=== PATIENT | female | born 1990 | race Caucasian/White ===

== ENCOUNTER 2017-03-15 15:21 | Emergency (ER) | payer MEDICAID, OTHER ==
[2017-03-15] MEDS: METHYLPREDNISOLONE 125 MG INJ IV (18:58)
[2017-03-15] MEDS: KETOROLAC 30 MG INJ IV (18:58)
[2017-03-15] MEDS: SOD CHLORIDE 0.9% 1,000 ML IV (18:58)
[2017-03-15] MEDS: PENICILLIN G BENZ 1.2 MIL UNIT SYG IM (19:16)
== END 2017-03-15 19:47 | disposition home or self-care (01) ==
LOC: FTE 15:21
DX: J02.9 Acute pharyngitis, unspecified (principal)
CPT/HCPCS: 96372; 96374; 96375; 99284-25; J0561

== ENCOUNTER 2017-09-17 13:41 | Emergency (ER) | payer SELFPAY, OTHER, MEDICAID ==
[2017-09-17] MEDS: DEXAMETHASONE 10 MG/ML 1 ML INJ IV (14:17)
[2017-09-17] MEDS: AMPICILLIN/SULB 3 GM/NS (PMX) 100 ML IVPB (14:17)
[2017-09-17] MEDS: SOD CHLORIDE 0.9% 500 ML IV (14:17)
[2017-09-17 14:33] LABS: ADD MAN DIFF? NO
[2017-09-17 14:34] LABS: BASOPHILS % 0.3 % (0.0-2.0); EOSINOPHILS # 0.1 10^3/ul (0.0-0.5); EOSINOPHILS % 1.1 % (0.0-7.0); HEMATOCRIT 42.9 % (37.0-47.0); HEMOGLOBIN 14.1 g/dl (12.0-16.0); LYMPHOCYTES # 2.5 10^3/ul (0.8-2.9); LYMPHOCYTES % 25.2 % (15.0-51.0); MEAN CORPUSCULAR HEMOGLOBIN 29.5 pg (29.0-33.0); MEAN CORPUSCULAR HGB CONC 32.9 g/dl (32.0-37.0); MEAN CORPUSCULAR VOLUME 89.7 fl (82.0-101.0); MEAN PLATELET VOLUME 11.6 fl (7.4-10.4); MONOCYTE # 0.9 10^3/ul (0.3-0.9); MONOCYTES % 8.7 % (0.0-11.0); NEUTROPHIL # 6.3 10^3/ul (1.6-7.5); NEUTROPHILS % 64.5 % (39.0-77.0); PLATELET COUNT 292 10^3/UL (140-415); RED BLOOD COUNT 4.78 10^6/ul (4.20-5.40); RED CELL DISTRIBUTION WIDTH 13.1 % (11.5-14.5)
[2017-09-17 14:34] LABS: WHITE BLOOD COUNT 9.8 10^3/ul (4.8-10.8)
[2017-09-17] MEDS: KETOROLAC 30 MG INJ IV (14:35)
[2017-09-17 14:52] LABS: MONOTEST Negative (NEG)
[2017-09-17 14:57] LABS: ANION GAP 16 (8-16); BLOOD UREA NITROGEN 10 mg/dl (7-20); CALCIUM 9.3 mg/dl (8.4-10.2); CARBON DIOXIDE 25 mmol/L (21-31); CHLORIDE 106 mmol/L (97-110); CREATININE 0.53 mg/dl (0.44-1.00); GLUCOSE 83 mg/dl (70-220); POTASSIUM 3.9 mmol/L (3.5-5.1); SODIUM 143 mmol/L (135-144)
[2017-09-17] MEDS: SOD CHLORIDE 0.9% 100 ML (15:22)
[2017-09-17] MEDS: IOHEXOL 300MG/ML 150 ML BTL (15:22)
== END 2017-09-17 18:59 | disposition home or self-care (01) ==
LOC: E/R 13:41
DX: J02.9 Acute pharyngitis, unspecified (principal); J39.2 Other diseases of pharynx
CPT/HCPCS: 70491; 80048; 84703; 85025; 86308; 87070; 96374; 96375; 99291-25

== ENCOUNTER 2018-01-24 10:53 | Emergency (ER) | payer SELFPAY ==
[2018-01-24] MEDS ORDERED: BUDESONIDE (NEB) 0.5MG/2ML AMP HHN (11:30)
[2018-01-24 11:47] LABS: URINE PH (Dip) POC 6.5 (5.0-8.5)
[2018-01-24 11:47] LABS: URINE BLOOD (Dip) POC Trace-intact (NEGATIVE); URINE GLUCOSE (Dip) POC Negative (NEGATIVE); URINE KETONES (Dip) POC Negative (NEGATIVE); URINE LEUKOCYTE EST (Dip) POC Negative (NEGATIVE); URINE NITRITE (Dip) POC Negative (NEGATIVE); URINE TOTAL PROTEIN POC Negative (NEGATIVE)
[2018-01-24] MEDS: BUDESONIDE (NEB) 0.25 MG/2 ML AMP INH (11:49)
[2018-01-24] MEDS: DEXAMETHASONE 10 MG/ML 1 ML INJ IV (12:08)
[2018-01-24] MEDS: KETOROLAC 15 MG INJ IV (12:08)
[2018-01-24 12:28] LABS: ADD MAN DIFF? NO
[2018-01-24] MEDS: SOD CHLORIDE 0.9% 1,000 ML IV (12:29)
[2018-01-24 12:30] LABS: WHITE BLOOD COUNT 9.9 10^3/ul (4.8-10.8)
[2018-01-24 12:30] LABS: BASOPHILS % 0.4 % (0.0-2.0); EOSINOPHILS # 0.2 10^3/ul (0.0-0.5); HEMATOCRIT 47.1 % (37.0-47.0); HEMOGLOBIN 15.1 g/dl (12.0-16.0); LYMPHOCYTES # 1.3 10^3/ul (0.8-2.9); LYMPHOCYTES % 13.4 % (15.0-51.0); MEAN CORPUSCULAR HEMOGLOBIN 28.8 pg (29.0-33.0); MEAN CORPUSCULAR HGB CONC 32.1 g/dl (32.0-37.0); MEAN CORPUSCULAR VOLUME 89.7 fl (82.0-101.0); MEAN PLATELET VOLUME 11.7 fl (7.4-10.4); MONOCYTE # 1.1 10^3/ul (0.3-0.9); MONOCYTES % 11.4 % (0.0-11.0); NEUTROPHIL # 7.2 10^3/ul (1.6-7.5); NEUTROPHILS % 72.6 % (39.0-77.0); PLATELET COUNT 286 10^3/UL (140-415); RED BLOOD COUNT 5.25 10^6/ul (4.20-5.40); RED CELL DISTRIBUTION WIDTH 13.5 % (11.5-14.5)
[2018-01-24] MEDS: CEFTRIAXONE 2 GM/50 ML (PMX) 50 ML IVPB (12:30)
[2018-01-24 12:56] LABS: ANION GAP 11 (5-13); BLOOD UREA NITROGEN 15 mg/dl (7-20); CALCIUM 9.9 mg/dl (8.4-10.2); CARBON DIOXIDE 25 mmol/L (21-31); CHLORIDE 107 mmol/L (97-110); CREATININE 0.62 mg/dl (0.44-1.00); Estimated GFR > 60 mL/min (>60); GLUCOSE 65 mg/dl (70-220); POTASSIUM 3.8 mmol/L (3.5-5.1); SODIUM 143 mmol/L (135-144)
== END 2018-01-24 13:41 | disposition home or self-care (01) ==
LOC: FTE 10:53
DX: J03.90 Acute tonsillitis, unspecified (principal); Z87.891 Personal history of nicotine dependence
CPT/HCPCS: 36415; 70360; 80048; 81003; 81025; 85025; 94664; 96374; 96375; 99284-25

== ENCOUNTER 2018-03-23 14:47 | Emergency (ER) | payer SELFPAY ==
[2018-03-23] MEDS: DEXAMETHASONE 10 MG/ML 1 ML INJ IM (15:21)
[2018-03-23] MEDS: PENICILLIN G BENZ 1.2 MIL UNIT SYG IM (15:21)
== END 2018-03-23 18:17 | disposition home or self-care (01) ==
LOC: FTE 14:47
DX: J39.2 Other diseases of pharynx (principal); F17.210 Nicotine dependence, cigarettes, uncomplicated
CPT/HCPCS: 96372; 99284-25

== ENCOUNTER 2018-06-01 15:38 | Emergency (ER) | payer SELFPAY ==
[2018-06-01 18:12] LABS: URINE BLOOD (Dip) POC Negative (NEGATIVE); URINE GLUCOSE (Dip) POC Negative (NEGATIVE); URINE KETONES (Dip) POC Negative (NEGATIVE); URINE LEUKOCYTE EST (Dip) POC Negative (NEGATIVE); URINE NITRITE (Dip) POC Negative (NEGATIVE); URINE TOTAL PROTEIN POC Negative (NEGATIVE)
[2018-06-01] MEDS: DEXAMETHASONE 10 MG/ML 1 ML INJ IM (19:05)
[2018-06-01] MEDS: CEFTRIAXONE 1 GM INJ IM (19:05)
[2018-06-01] MEDS: KETOROLAC 30 MG INJ IM (19:06)
== END 2018-06-01 19:18 | disposition home or self-care (01) ==
LOC: FTE 15:38 → E/R 19:18
DX: J03.90 Acute tonsillitis, unspecified (principal)
CPT/HCPCS: 81003; 96372; 99284-25

== ENCOUNTER 2018-06-26 22:31 | Emergency (ER) | payer SELFPAY, OTHER ==
[2018-06-27] MEDS: RACEPINEPHRINE 2.25%(NEB) 0.5 ML AMP HHN (02:23)
[2018-06-27] MEDS: DEXAMETHASONE 10 MG/ML 1 ML INJ IV (02:34)
[2018-06-27 02:36] LABS: ADD MAN DIFF? NO
[2018-06-27 02:38] LABS: WHITE BLOOD COUNT 12.8 10^3/ul (4.8-10.8)
[2018-06-27 02:38] LABS: BASOPHIL # 0.1 10^3/ul (0.0-0.1); BASOPHILS % 0.5 % (0.0-2.0); EOSINOPHILS # 0.3 10^3/ul (0.0-0.5); HEMATOCRIT 43.4 % (37.0-47.0); LYMPHOCYTES # 4.5 10^3/ul (0.8-2.9); LYMPHOCYTES % 35.4 % (15.0-51.0); MEAN CORPUSCULAR HGB CONC 32.3 g/dl (32.0-37.0); MEAN CORPUSCULAR VOLUME 89.9 fl (82.0-101.0); MEAN PLATELET VOLUME 11.1 fl (7.4-10.4); MONOCYTE # 1.1 10^3/ul (0.3-0.9); MONOCYTES % 8.9 % (0.0-11.0); NEUTROPHIL # 6.7 10^3/ul (1.6-7.5); NEUTROPHILS % 52.8 % (39.0-77.0); PLATELET COUNT 310 10^3/UL (140-415); RED BLOOD COUNT 4.83 10^6/ul (4.20-5.40); RED CELL DISTRIBUTION WIDTH 13.3 % (11.5-14.5)
[2018-06-27] MEDS: KETOROLAC 30 MG INJ IV (02:38)
[2018-06-27 02:58] LABS: ANION GAP 8 (5-13); BLOOD UREA NITROGEN 21 mg/dl (7-20); CALCIUM 9.5 mg/dl (8.4-10.2); CARBON DIOXIDE 25 mmol/L (21-31); CHLORIDE 109 mmol/L (97-110); CREATININE 0.71 mg/dl (0.44-1.00); Estimated GFR > 60 mL/min (>60); GLUCOSE 88 mg/dl (70-220); POTASSIUM 3.8 mmol/L (3.5-5.1); SODIUM 142 mmol/L (135-144)
== END 2018-06-27 03:45 | disposition home or self-care (01) ==
LOC: FTE 06-27 03:45
DX: J02.9 Acute pharyngitis, unspecified (principal)
CPT/HCPCS: 36415; 70360; 80048; 84443; 85025; 87880; 96374; 96375; 99284-25

== ENCOUNTER 2018-11-04 16:32 | Emergency (ER) | payer OTHER ==
[2018-11-04] MEDS: DEXAMETHASONE 10 MG/ML 1 ML INJ IM (17:56)
== END 2018-11-04 18:16 | disposition home or self-care (01) ==
LOC: FTE 18:16
DX: J03.90 Acute tonsillitis, unspecified (principal); Z87.891 Personal history of nicotine dependence
CPT/HCPCS: 96372; 99284-25